=== PATIENT | female | born 1985 | race Caucasian/White ===

== ENCOUNTER 2021-10-03 21:19 | Emergency (ER) | payer BC ==
[2021-10-03] MEDS ORDERED: POLYTRIM EYE DR10 ML EYERT (22:44)
[2021-10-03] MEDS ORDERED: IBUPROFEN600 MG PO (22:44)
== END 2021-10-03 22:50 | disposition home or self-care (01) ==
LOC: ER1 21:19
DX: S05.01XA Injury of conjunctiva and corneal abrasion without foreign body, right eye, initial encounter (principal); F17.290 Nicotine dependence, other tobacco product, uncomplicated; X58.XXXA Exposure to other specified factors, initial encounter
CPT/HCPCS: 99282